=== PATIENT | female | born 1970 | race Caucasian/White ===

== ENCOUNTER 2016-08-30 02:38 | Emergency (ER) | payer BC ==
--- NOTE | 2016-08-30 03:44 | EDM.PDOC ---
ED HPI GENERAL MEDICAL PROBLEM - General Chief Complaint: Respiratory Problem Stated Complaint: TROUBLE BREATHING Time Seen by Provider: 08/30/16 02:45 Source of Information: Reports: Patient, Family (), RN Notes Reviewed History Limitations: Reports: No Limitations - History of Present Illness INITIAL COMMENTS - FREE TEXT/NARRATIVE: The patient states that she woke around 02:30 with the sensation that she couldn 't breathe. Her neck felt tight. The patient was not coughing. She denies having had chest pain or palpitations. No tingling or numbness to her face or hands, however, she did feel shaky. Her symptoms improved on the way to the ED. Once of the ED, it was noted that the patient's oxygen saturation was 100% on room air. No recent illnesses. No prior similar symptoms. The patient's PCP is Dr. Kahn. 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: Endocrine/Metabolic History: Reports: Hypothyroidism - Past Surgical History HEENT Surgical History: Reports: Oral Surgery ([place] teeth extraction) GI Surgical History: Reports: Cholecystectomy Female Surgical History: Reports: Endometrial Ablation Social & Family History - Family History Family Medical History: Noncontributory - Tobacco Use Smoking Status *Q: Never Smoker - Caffeine Use Caffeine Use: Reports: Coffee, Soda - Alcohol Use Alcohol Use History: Yes Alcohol Use Frequency: Socially - Recreational Drug Use Recreational Drug Use: No - Living Situation & Occupation Living situation: Reports: , with Spouse, with Family (3 kids) 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[employer]) ED ROS GENERAL - Review of Systems Review Of Systems: See Below Constitutional: Reports: No Symptoms HEENT: Reports: No Symptoms Respiratory: Reports: No Symptoms Cardiovascular: Reports: No Symptoms Endocrine: Reports: No Symptoms GI/Abdominal: Reports: No Symptoms : Reports: No Symptoms Musculoskeletal: Reports: Neck Pain (x 2 months) Skin: Reports: No Symptoms Neurological: Reports: No Symptoms Psychiatric: Reports: No Symptoms Hematologic/Lymphatic: Reports: No Symptoms Immunologic: Reports: No Symptoms ED EXAM, GENERAL - Physical Exam Exam: See Below Exam Limited By: No Limitations General Appearance: Alert, WD/WN, No Apparent Distress Eye Exam: Bilateral Eye: Normal Inspection Ears: Normal External Exam, Hearing Grossly Normal Ear Exam: Bilateral Ear: Auricle Normal Nose: Normal Inspection, No Blood Throat/Mouth: Normal Inspection, Normal Lips, Normal Voice, No Airway Compromise Head: Atraumatic, Normocephalic Neck: Normal Inspection, Full Range of Motion Respiratory/Chest: No Respiratory Distress, Lungs Clear, Normal Breath Sounds, No Accessory Muscle Use Cardiovascular: Normal Peripheral Pulses, Regular Rate, Rhythm, No Gallop, No JVD, No Murmur, No Rub Peripheral Pulses: 4+: Radial (L), Radial (R) GI/Abdominal: Normal Bowel Sounds, Soft, Non-Tender, No Organomegaly, No Distention, No Abnormal Bruit, No Mass (Female) Exam: Deferred Rectal (Female) Exam: Deferred Back Exam: Normal Inspection, Full Range of Motion, NT Extremities: Normal Inspection, Normal Range of Motion, No Pedal Edema, Normal Capillary Refill Neurological: Alert, Oriented, Normal Cognition, No Motor/Sensory Deficits Psychiatric: Normal Affect Skin Exam: Warm, Dry, Intact, Normal Color, No Rash Lymphatic: No Adenopathy EKG INTERPRETATION EKG Date: 08/30/16 Time: 03:16 Rhythm: NSR Rate (beats/min): 68 [place]: normal P-wave: present QRS: normal ST-T: normal QT: normal Comparison: NA - no prior EKG Course - Vital Signs Last Recorded V/S: Last Vital Signs Temp 36.5 C 08/30/16 02:40 Pulse 91 08/30/16 02:40 Resp 16 08/30/16 02:40 BP 178/84 H 08/30/16 02:40 Pulse Ox 100 08/30/16 02:40 Orthostatic Blood Pressure [ 171/94 Standing] Orthostatic Blood Pressure [ 166/85 Supine] - Orders/Labs/Meds Orders: Active Orders 24 hr Category Date Time Status EKG Documentation Completion [RC] STAT Care 08/30/16 03:01 Active Orthostatic Vital Signs [RC] STAT Care 08/30/16 03:01 Active Chest 2V [CR] Stat Exams 08/30/16 03:01 Taken Labs: Laboratory Tests 08/30/16 08/30/1617 Range/Units 03:15 03:15 03:15 WBC 7.73 (3.98-10.04) K/mm3 RBC 4.68 (3.98-5.22) M/mm3 Hgb 13.6 (11.2-15.7) gm/L Hct 42.0 (34.1-44.9) % MCV 89.7 (79.4-94.8) fl MCH 29.1 (25.6-32.2) pg MCHC 32.4 (32.2-35.5) g/dl RDW Std Deviation 41.3 (36.4-46.3) fL Plt Count 243 (182-369) K/mm3 MPV 10.4 (9.4-12.3) fl Neutrophils % (Manual) 51 (40-60) % Band Neutrophils % 0 (0-10) % Lymphocytes % (Manual) 47 H (20-40) % Atypical Lymphs % 0 % Immat Monocytes % (Man) 0 Monocytes % (Manual) 1 L (2-10) % Eosinophils % (Manual) 1 (0.7-5.8) % Basophils % (Manual) 0 L (0.1-1.2) Metamyelocytes % 0 Myelocytes % 0 Promyelocytes % 0 Blast Cells % 0 Plasma Cell % (Manual) 0 Nucleated RBCs 0.0 % Platelet Estimate Adequate RBC Morph Comment Normal PT 9.5 (8.0-13.0) SECONDS INR 0.88 APTT 26 (22-36) SECONDS D-Dimer, Quantitative 0.38 (0.19-0.59) mg/L Puncture Site ABG pH (7.35-7.45) ABG pCO2 (35.0-45.0) mmHg ABG pO2 (80.0-100.0) mmHg ABG HCO3 (22.0-26.0) meq/L ABG O2 Saturation (96.0-97.0) % ABG Base Excess (-2-2.0) Adolfo Test A-a Gradient mmHg O2 Delivery Device FiO2 (21.00-100.00) % Sodium 142 (136-145) mEq/L Potassium 3.5 (3.5-5.1) mEq/L Chloride 107 (98-107) mEq/L Carbon Dioxide 27 (21-32) mEq/L Anion Gap 11.5 (5-15) BUN 20 H (7-18) mg/dL Creatinine 0.8 (0.55-1.02) mg/dL Est Cr Clr Drug Dosing 85.45 mL/min Estimated GFR (MDRD) > 60 (>60) mL/min BUN/Creatinine Ratio 25.0 H (14-18) Glucose 98 (74-106) mg/dL Calcium 8.5 (8.5-10.1) mg/dL Magnesium 1.7 L (1.8-2.4) mg/dl Total Bilirubin 0.3 (0.2-1.0) mg/dL AST 18 (15-37) U/L ALT 31 (14-59) U/L Alkaline Phosphatase 82 (46-116) U/L Troponin I < 0.017 (0.00-0.056) ng/mL B-Natriuretic Peptide (0-100) pg/mL Total Protein 6.8 (6.4-8.2) g/dl Albumin 3.4 (3.4-5.0) g/dl Globulin 3.4 gm/dL Albumin/Globulin Ratio 1.0 (1-2) TSH 3rd Generation 5.541 H (0.358-3.74) uIU/mL Urine Color (Yellow) Urine Appearance (Clear) Urine pH (5.0-8.0) Ur Specific [place] (1.005-1.030) Urine Protein (Negative) Urine Glucose (UA) (Negative) Urine Ketones (Negative) Urine Occult Blood (Negative) Urine Nitrite (Negative) Urine Bilirubin (Negative) Urine Urobilinogen (0.2-1.0) Ur Leukocyte Esterase (Negative) Urine RBC (0-5) /hpf Urine WBC (0-5) /hpf Ur Epithelial Cells Ur Squamous Epith Cells (0-5) /hpf Urine Bacteria (FEW) /hpf Urine Mucus (FEW) /hpf Urine HCG, Qual (NEGATIVE) 08/30/16 08/30/16 08/30/16 Range/Units 03:15 03:25 04:00 WBC (3.98-10.04) K/mm3 RBC (3.98-5.22) M/mm3 Hgb (11.2-15.7) gm/L Hct (34.1-44.9) % MCV (79.4-94.8) fl MCH (25.6-32.2) pg MCHC (32.2-35.5) g/dl RDW Std Deviation (36.4-46.3) fL Plt Count (182-369) K/mm3 MPV (9.4-12.3) fl Neutrophils % (Manual) (40-60) % Band Neutrophils % (0-10) % Lymphocytes % (Manual) (20-40) % Atypical Lymphs % % Immat Monocytes % (Man) Monocytes % (Manual) (2-10) % Eosinophils % (Manual) (0.7-5.8) % Basophils % (Manual) (0.1-1.2) Metamyelocytes % Myelocytes % Promyelocytes % Blast Cells % Plasma Cell % (Manual) Nucleated RBCs % Platelet Estimate RBC Morph Comment PT (8.0-13.0) SECONDS INR APTT (22-36) SECONDS D-Dimer, Quantitative (0.19-0.59) mg/L Puncture Site Lt radial ABG pH 7.39 (7.35-7.45) ABG pCO2 38.9 (35.0-45.0) mmHg ABG pO2 68.0 L (80.0-100.0) mmHg ABG HCO3 23.1 (22.0-26.0) meq/L ABG O2 Saturation 95.2 L (96.0-97.0) % ABG Base Excess -1.0 (-2-2.0) Adolfo Test Positive A-a Gradient 18 mmHg O2 Delivery Device Room air FiO2 21.00 (21.00-100.00) % Sodium (136-145) mEq/L Potassium (3.5-5.1) mEq/L Chloride (98-107) mEq/L Carbon Dioxide (21-32) mEq/L Anion Gap (5-15) BUN (7-18) mg/dL Creatinine (0.55-1.02) mg/dL Est Cr Clr Drug Dosing mL/min Estimated GFR (MDRD) (>60) mL/min BUN/Creatinine Ratio (14-18) Glucose (74-106) mg/dL Calcium (8.5-10.1) mg/dL Magnesium (1.8-2.4) mg/dl Total Bilirubin (0.2-1.0) mg/dL AST (15-37) U/L ALT (14-59) U/L Alkaline Phosphatase (46-116) U/L Troponin I (0.00-0.056) ng/mL B-Natriuretic Peptide 75 (0-100) pg/mL Total Protein (6.4-8.2) g/dl Albumin (3.4-5.0) g/dl Globulin gm/dL Albumin/Globulin Ratio (1-2) TSH 3rd Generation (0.358-3.74) uIU/mL Urine Color (Yellow) Urine Appearance (Clear) Urine pH (5.0-8.0) Ur Specific [place] (1.005-1.030) Urine Protein (Negative) Urine Glucose (UA) (Negative) Urine Ketones (Negative) Urine Occult Blood (Negative) Urine Nitrite (Negative) Urine Bilirubin (Negative) Urine Urobilinogen (0.2-1.0) Ur Leukocyte Esterase (Negative) Urine RBC (0-5) /hpf Urine WBC (0-5) /hpf Ur Epithelial Cells Ur Squamous Epith Cells (0-5) /hpf Urine Bacteria (FEW) /hpf Urine Mucus (FEW) /hpf Urine HCG, Qual Negative (NEGATIVE) 08/30/16 Range/Units 04:00 WBC (3.98-10.04) K/mm3 RBC (3.98-5.22) M/mm3 Hgb (11.2-15.7) gm/L Hct (34.1-44.9) % MCV (79.4-94.8) fl MCH (25.6-32.2) pg MCHC (32.2-35.5) g/dl RDW Std Deviation (36.4-46.3) fL Plt Count (182-369) K/mm3 MPV (9.4-12.3) fl Neutrophils % (Manual) (40-60) % Band Neutrophils % (0-10) % Lymphocytes % (Manual) (20-40) % Atypical Lymphs % % Immat Monocytes % (Man) Monocytes % (Manual) (2-10) % Eosinophils % (Manual) (0.7-5.8) % Basophils % (Manual) (0.1-1.2) Metamyelocytes % Myelocytes % Promyelocytes % Blast Cells % Plasma Cell % (Manual) Nucleated RBCs % Platelet Estimate RBC Morph Comment PT (8.0-13.0) SECONDS INR APTT (22-36) SECONDS D-Dimer, Quantitative (0.19-0.59) mg/L Puncture Site ABG pH (7.35-7.45) ABG pCO2 (35.0-45.0) mmHg ABG pO2 (80.0-100.0) mmHg ABG HCO3 (22.0-26.0) meq/L ABG O2 Saturation (96.0-97.0) % ABG Base Excess (-2-2.0) Adolfo Test A-a Gradient mmHg O2 Delivery Device FiO2 (21.00-100.00) % Sodium (136-145) mEq/L Potassium (3.5-5.1) mEq/L Chloride (98-107) mEq/L Carbon Dioxide (21-32) mEq/L Anion Gap (5-15) BUN (7-18) mg/dL Creatinine (0.55-1.02) mg/dL Est Cr Clr Drug Dosing mL/min Estimated GFR (MDRD) (>60) mL/min BUN/Creatinine Ratio (14-18) Glucose (74-106) mg/dL Calcium (8.5-10.1) mg/dL Magnesium (1.8-2.4) mg/dl Total Bilirubin (0.2-1.0) mg/dL AST (15-37) U/L ALT (14-59) U/L Alkaline Phosphatase (46-116) U/L Troponin I (0.00-0.056) ng/mL B-Natriuretic Peptide (0-100) pg/mL Total Protein (6.4-8.2) g/dl Albumin (3.4-5.0) g/dl Globulin gm/dL Albumin/Globulin Ratio (1-2) TSH 3rd Generation (0.358-3.74) uIU/mL Urine Color Yellow (Yellow) Urine Appearance Clear (Clear) Urine pH 5.5 (5.0-8.0) Ur Specific [place] > or = 1.030 (1.005-1.030) Urine Protein Trace H (Negative) Urine Glucose (UA) Negative (Negative) Urine Ketones Negative (Negative) Urine Occult Blood Negative (Negative) Urine Nitrite Negative (Negative) Urine Bilirubin Negative (Negative) Urine Urobilinogen 0.2 (0.2-1.0) Ur Leukocyte Esterase Trace H (Negative) Urine RBC Not seen (0-5) /hpf Urine WBC 0-5 (0-5) /hpf Ur Epithelial Cells Not Reportable Ur Squamous Epith Cells 0-5 (0-5) /hpf Urine Bacteria Not seen (FEW) /hpf Urine Mucus Few (FEW) /hpf Urine HCG, Qual (NEGATIVE) - Radiology Interpretation Free Text/Narrative:: Two-view chest radiograph appears to be grossly normal. Cardiac silhouette is within normal limits. No pulmonary vascular congestion. No pleural effusions. No focal infiltrate. No pneumothorax. Formal read per the Radiologist pending. - Re-Assessments/Exams Free Text/Narrative Re-Assessment/Exam: 08/30/16 03:30 The patient is not orthostatic. 08/30/16 05:13 Test results discussed with the patient and her . Today's workup is unremarkable, however, when the patient first arrived, it was noted that her oxygen saturation was 100% on room air, consistent with hyperventilation. The symptoms that the patient initially had were also consistent with hyperventilation, and have since resolved. Today's workup rules out other etiology for hyperventilation, such as metabolic acidosis, hypocalcemia, hypoglycemia, hyperthyroidism, liver failure, severe anemia, sepsis, acute coronary event, pneumothorax, pneumonia, dysrhythmia, PE, and CHF. The most likely explanation, then, is anxiety. Departure - Departure Time of Disposition: 05:16 Disposition: Home, Self-Care 01 Condition: good Clinical Impression: Hyperventilation syndrome - Discharge Information Referrals: Augustine Cr MD [Primary Care Provider] - Forms: ED Department Discharge Additional Instructions: You were seen in the emergency room because of feeling that he couldn't breathe , with tightness in her neck. When you arrived in the ER, your oxygen saturation was 100% on room air, consistent with hyperventilation. Hyperventilation can be caused by numerous medical problems, such as metabolic acidosis, hypocalcemia, hypoglycemia, hyperthyroidism, liver failure, severe anemia, sepsis, acute coronary event, pneumothorax, pneumonia, dysrhythmia, PE, and CHF. These have been ruled out. The MOST LIKELY explanation for your hyperventilation is anxiety. While unpleasant, hyperventilation is not harmful to you. Since this is the first time that this has happened, no treatment is needed, however, if this becomes recurrent, please talk to your PCP, Dr. Kahn, about medical treatment. If any other problems, please do not hesitate to return to the ER. - My Orders Last 24 Hours: My Active Orders 08/30/16 03:01 EKG Documentation Completion [RC] STAT Orthostatic Vital Signs [RC] STAT Chest 2V [CR] Stat - Assessment/Plan Last 24 Hours: My Active Orders 08/30/16 03:01 EKG Documentation Completion [RC] STAT Orthostatic Vital Signs [RC] STAT Chest 2V [CR] Stat
[2016-08-30 05:25] VITALS: BP 137/71
--- NOTE | 2016-08-30 07:37 | CR ---
Chest: Two views of the chest were obtained. Comparison: No previous chest x-ray. Heart size and mediastinum are normal. Lungs are clear. Bony structures are unremarkable. Impression: 1. Nothing acute is identified on two-view chest x-ray. Diagnostic code #1
== END 2016-08-30 05:23 | disposition home or self-care (01) ==
LOC: JD.ED 02:38
DX: F45.8 Other somatoform disorders (principal); E03.9 Hypothyroidism, unspecified; Z88.1 Allergy status to other antibiotic agents; Z90.49 Acquired absence of other specified parts of digestive tract; Z98.818 Other dental procedure status; Z98.890 Other specified postprocedural states
CPT/HCPCS: 36415; 36600; 71020; 71020-26; 80053; 81001; 81025; 82803; 83735; 83880; 84443; 84484; 85025; 85379; 85610; 85730; 93005; 99282; 99285-25

== ENCOUNTER 2017-10-11 12:41 | Emergency (ER) | payer BC ==
[2017-10-11] MEDS ORDERED: Sodium Chloride 0.9% 1,000 ML IV SCH (13:00)
--- NOTE | 2017-10-11 13:03 | EDM.PDOC ---
ED HPI GENERAL MEDICAL PROBLEM - General Chief Complaint: Chest Pain Stated Complaint: CHEST DISCOMFORT/R ARM DISCOMFORT Time Seen by Provider: 10/11/17 12:57 Source of Information: Reports: Patient History Limitations: Reports: No Limitations - History of Present Illness INITIAL COMMENTS - FREE TEXT/NARRATIVE: 46-year-old female presents to the ED with retrosternal chest pain that radiated up into her throat primarily yesterday. She states it started shortly after breakfast yesterday morning about 9:00 and was quite bad by 11:00. She actually went home from work. She did go back to work to mid afternoon when it in the stomach. Burping and belching seemed to help a little bit with the discomfort. She states it was quite burning and tender. There was some odynophagia noted yesterday. So today. She took a good deal of Tums and Rolaids just today as well as picked up his prescription of omeprazole which she has taken 2 tablets today her pain is down to a 1. She still aware of it in the pit of her stomach with pressure discomfort and the pain seemed to radiate into her right shoulder and arm for a period of time. Again it was worse yesterday. She exited broke out in a sweat yesterday. She also remains mildly nauseated with pain referred rate through to her back to her intrascapular area. Deep breathing makes the pain minimally worse. Bowels are working normally. She's had no previous cardiac problems. She reports she is a never smoker. She does give a history of suspect pulmonary embolism although the details of this are a little off and I cannot confirm whether she actually had a PE she's never been told she has a hiatal hernia problem in the past.. Apparently she did not have a DVT. Onset: Gradual Onset Date: 10/10/17 Onset Time: 09:00 Duration: Hour(s):, Improving Location: Reports: Chest, Abdomen (Central chest up into her throat and neck. Bilateral jaw discomfort of the stomach pressure discomfort.), Back, Radiates to (Intrascapular area). Denies: Pelvis (Radiates from the stomach right through to her mid back between the shoulder blades.), Upper Extremity, Left, Upper Extremity, Right, Lower Extremity, Left Quality: Reports: Ache, Burning, Pressure Severity: Mild (Currently pain is down to 1 out of 10. Yesterday was high as 8 out of 10 associated with diaphoresis and marked nausea. Nausea is mild at this time) Improves with: Reports: None Worsens with: Reports: Other (Had a rough night last night is no position was carpal. Shallowly on her left side to get a little) Context: Denies: Activity ( relief of the discomfort.), Exercise, Lifting, Sick Contact, Trauma, Other Associated Symptoms: Reports: Loss of Appetite, Nausea/Vomiting (Nausea with no vomiting although she thought for quite a while yesterday she was going to vomit.). Denies: No Other Symptoms, Confusion, Chest Pain, Cough, cough w sputum, Diaphoresis, Fever/Chills, Headaches, Malaise, Rash, Seizure, Shortness of Breath, Syncope, Weakness Treatments CONTACT CLERK: Reports: Other (see below) (She has eaten a lot of Tums and Rolaids and omeprazole starting yesterday.) Chest Pain Score (Numeric/FACES): 4 - Related Data Allergies Allergy/AdvReac Type Severity Reaction Status Date / Time azithromycin Allergy Hives Verified 10/11/17 12:51 [From Zithromax Z-Iglesia] Home Meds: Home Meds Dicyclomine [Bentyl] 20 mg PO Q6H PRN #10 tablet 10/11/17 [Rx] Levothyroxine 125 mcg PO DAILY 10/11/17 [History] Past Medical History Respiratory History: Reports: PE (By history she reports a past history of pulmonary embolism. Apparently her legs were negative for any clots at that time. This did not occur with any trauma or surgery.) Gastrointestinal History: Reports: [employer] History: Reports: Musculoskeletal History: Reports: Back Pain, Chronic, Neck Pain, Chronic Endocrine/Metabolic History: Reports: Hypothyroidism - Past Surgical History HEENT Surgical History: Reports: Oral Surgery GI Surgical History: Reports: Cholecystectomy Female Surgical History: Reports: Endometrial Ablation Social & Family History - Family History Family Medical History: Noncontributory - Tobacco Use Smoking Status *Q: Never Smoker - Caffeine Use Caffeine Use: Reports: Coffee - Recreational Drug Use Recreational Drug Use: No - Living Situation & Occupation Living situation: Reports: , with Spouse, with Family (3 kids) 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 Denies: Fever, Chills, Weakness, Weight Loss ( Slept very poorly last night due to epigastric pain. No position is comfortable. ) HEENT: Reports: Glasses Respiratory: Reports: Other (Deep breathing makes the pain in the epigastrium mildly worse.). Denies: Shortness of Breath, Wheezing, Pleuritic Chest Pain Cardiovascular: Reports: Chest Pain, Dyspnea on Exertion (See history of present illness). Denies: Blood Pressure Problem, Claudication, Edema, Lightheadedness, Orthopnea Endocrine: Reports: Fatigue GI/Abdominal: Reports: Abdominal Pain, Decreased Appetite (Epigastrium rate up into her neck and throat and retrosternal chest.). Denies: Difficulty Swallowing, Distension, Flatus, Hematemesis, Hematochezia, Melena, Mucous in Stool, Nausea, Vomiting, Other : Reports: No Symptoms Musculoskeletal: Reports: Neck Pain (Chronic cervical neck pain), Back Pain ( Committed low back pain.) Skin: Reports: No Symptoms Neurological: Reports: No Symptoms Psychiatric: Reports: No Symptoms Hematologic/Lymphatic: Reports: No Symptoms ED EXAM, GENERAL - Physical Exam Exam: See Below Exam Limited By: No Limitations General Appearance: Alert, WD/WN, Anxious (Mildly anxious.) Eye Exam: Bilateral Eye: Normal Inspection (No jaundice) Throat/Mouth: Normal Inspection, Normal Lips, Normal Teeth, Normal Gums, Normal Oropharynx Head: Normocephalic Neck: Normal Inspection, Supple, Non-Tender, Full Range of Motion. No: Carotid Bruit, Lymphadenopathy (L), Lymphadenopathy (R), Thyromegaly Respiratory/Chest: No Respiratory Distress, Lungs Clear, Normal Breath Sounds, No Accessory Muscle Use, Other (Mild chest wall tenderness on palpation of ribs 4 and 5 bilaterally. It refers the pain to the epigastrium.) Cardiovascular: Normal Peripheral Pulses, Regular Rate, Rhythm, No Edema, No Gallop, No Murmur Peripheral Pulses: 3+: Posterior Tibial (L), Posterior Tibial (R), Dorsalis Pedis (L), Dorsalis Pedis (R) GI/Abdominal: Normal Bowel Sounds, Soft, No Organomegaly, Tender, Other (She's had previous lap cholecystectomy.) Back Exam: Normal Inspection, Full Range of Motion. No: CVA Tenderness (L), CVA Tenderness (R) Extremities: Normal Inspection, Normal Range of Motion, Non-Tender, No Pedal Edema Neurological: Alert, Oriented, CN II-XII Intact, Normal Cognition, Normal Gait Psychiatric: Normal Mood, Anxious Skin Exam: Warm, Dry, Intact, Normal Color EKG INTERPRETATION EKG Date: 10/11/17 Time: 12:50 Rhythm: Other Rate (Beats/Min): 57 [place]: Normal P-Wave: Present QRS: Other (Patient has early R-wave transition. Consider right ventricular hypertrophy/septal hypertrophy pattern. She has criteria for left ventricular hypertrophy pattern with tall R-wave in lead 1.) ST-T: Other (There is a Q-wave in aVL less than 25% of the QRS complex. There is similarly Q-wave in lead 1 again less than 25% of the QRS complex. At this time considered insignificant although one could consider possible old circumflex coronary infarction.) QT: Prolonged (Moderately prolonged) Course - Vital Signs Last Recorded V/S: Last Vital Signs Temp 35.8 C 10/11/17 14:33 Pulse 52 L 10/11/17 14:33 Resp 16 10/11/17 14:33 BP 143/71 H 10/11/17 14:33 Pulse Ox 96 10/11/17 14:33 - Orders/Labs/Meds Orders: Active Orders 24 hr Category Date Time Status EKG 12 Lead [EKG Documentation Completion] [RC] STAT Care 10/11/17 12:47 Active EKG Documentation Completion [RC] STAT Care 10/11/17 13:01 Active Chest 1V Frontal [CR] Stat Exams 10/11/17 13:01 Taken Sodium Chloride 0.9% [Normal Saline] 1,000 ml Med 10/11/17 13:00 Active IV ASDIRECTED Medication Orders Sodium Chloride (Normal Saline) 1,000 mls @ 125 mls/hr IV ASDIRECTED SAVANAH Last Admin: 10/11/17 13:17 Dose: 125 mls/hr Labs: Laboratory Tests 10/11/17 10/11/17 10/11/17 Range/Units 13:00 13:00 13:00 WBC 5.92 (3.98-10.04) K/mm3 RBC 4.74 (3.98-5.22) M/mm3 Hgb 13.8 (11.2-15.7) gm/L Hct 42.9 (34.1-44.9) % MCV 90.5 (79.4-94.8) fl MCH 29.1 (25.6-32.2) pg MCHC 32.2 (32.2-35.5) g/dl RDW Std Deviation 42.7 (36.4-46.3) fL Plt Count 243 (182-369) K/mm3 MPV 10.3 (9.4-12.3) fl Neutrophils % (Manual) 45 (40-60) % Band Neutrophils % 1 (0-10) % Lymphocytes % (Manual) 52 H (20-40) % Atypical Lymphs % 0 % Monocytes % (Manual) 2 (2-10) % Eosinophils % (Manual) 0 L (0.7-5.8) % Basophils % (Manual) 0 L (0.1-1.2) Platelet Estimate Adequate RBC Morph Comment Normal PT 10.2 (9.5-12.1) SECONDS INR 0.93 D-Dimer, Quantitative (0.19-0.50) mg/L Sodium 139 (136-145) mEq/L Potassium 3.4 L (3.5-5.1) mEq/L Chloride 102 (98-107) mEq/L Carbon Dioxide 29 (21-32) mEq/L Anion Gap 11.4 (5-15) BUN 19 H (7-18) mg/dL Creatinine 1.0 (0.55-1.02) mg/dL Est Cr Clr Drug Dosing 67.63 mL/min Estimated GFR (MDRD) 59 (>60) mL/min BUN/Creatinine Ratio 19.0 H (14-18) Glucose 100 (74-106) mg/dL Calcium 9.1 (8.5-10.1) mg/dL Magnesium 1.8 (1.8-2.4) mg/dl Total Bilirubin 0.4 (0.2-1.0) mg/dL AST 22 (15-37) U/L ALT 36 (14-59) U/L Alkaline Phosphatase 80 (46-116) U/L CK-MB (CK-2) 0.9 (0-3.6) ng/ml Troponin I < 0.017 (0.00-0.056) ng/mL C-Reactive Protein 0.4 (<1.0) mg/dL NT-Pro-B Natriuret Pep (0-125) pg/mL Total Protein 7.7 (6.4-8.2) g/dl Albumin 3.9 (3.4-5.0) g/dl Globulin 3.8 gm/dL Albumin/Globulin Ratio 1.0 (1-2) Lipase (73-393) U/L 10/11/17 10/11/17 10/11/17 Range/Units 13:00 13:00 13:00 WBC (3.98-10.04) K/mm3 RBC (3.98-5.22) M/mm3 Hgb (11.2-15.7) gm/L Hct (34.1-44.9) % MCV (79.4-94.8) fl MCH (25.6-32.2) pg MCHC (32.2-35.5) g/dl RDW Std Deviation (36.4-46.3) fL Plt Count (182-369) K/mm3 MPV (9.4-12.3) fl Neutrophils % (Manual) (40-60) % Band Neutrophils % (0-10) % Lymphocytes % (Manual) (20-40) % Atypical Lymphs % % Monocytes % (Manual) (2-10) % Eosinophils % (Manual) (0.7-5.8) % Basophils % (Manual) (0.1-1.2) Platelet Estimate RBC Morph Comment PT (9.5-12.1) SECONDS INR D-Dimer, Quantitative 0.46 (0.19-0.50) mg/L Sodium (136-145) mEq/L Potassium (3.5-5.1) mEq/L Chloride (98-107) mEq/L Carbon Dioxide (21-32) mEq/L Anion Gap (5-15) BUN (7-18) mg/dL Creatinine (0.55-1.02) mg/dL Est Cr Clr Drug Dosing mL/min Estimated GFR (MDRD) (>60) mL/min BUN/Creatinine Ratio (14-18) Glucose (74-106) mg/dL Calcium (8.5-10.1) mg/dL Magnesium (1.8-2.4) mg/dl Total Bilirubin (0.2-1.0) mg/dL AST (15-37) U/L ALT (14-59) U/L Alkaline Phosphatase (46-116) U/L CK-MB (CK-2) (0-3.6) ng/ml Troponin I (0.00-0.056) ng/mL C-Reactive Protein (<1.0) mg/dL NT-Pro-B Natriuret Pep 179 H (0-125) pg/mL Total Protein (6.4-8.2) g/dl Albumin (3.4-5.0) g/dl Globulin gm/dL Albumin/Globulin Ratio (1-2) Lipase 233 (73-393) U/L Meds: Medications Generic Name Dose Route Start Last Admin Trade Name Freq PRN Reason Stop Dose Admin Sodium Chloride 1,000 mls @ 125 mls/hr 10/11/17 13:00 10/11/17 13:17 Normal Saline IV 125 mls/hr ASDIRECTED SAVANAH Administration Discontinued Medications Generic Name Dose Route Start Last Admin Trade Name Freq PRN Reason Stop Dose Admin Al Hydroxide/Mg Hydroxide 30 0 ml 10/11/17 13:21 10/11/17 13:35 ml/ Lidocaine HCl 15 ml PO 10/11/17 13:22 45 ml ONETIME ONE Administration Hyoscyamine 0.125 mg 10/11/17 13:20 10/11/17 13:31 Hyomax-Sl SL 10/11/17 13:21 0.125 mg ONETIME ONE Administration Metoclopramide HCl 7.5 mg 10/11/17 13:20 10/11/17 13:32 Reglan IVPUSH 10/11/17 13:21 7.5 mg ONETIME ONE Administration Ondansetron HCl 4 mg 10/11/17 13:20 10/11/17 13:35 Zofran IVPUSH 10/11/17 13:21 Not Given ONETIME ONE - Radiology Interpretation Free Text/Narrative:: 46-year-old female presents the ED with central chest pain rating up into her neck and throat. Starts in the pit of her stomach however and radiates through to her mid back suggestive of hiatal hernia. This pain started yesterday about 9 :00 in the morning and is persisted. It is much better today than it was yesterday. She has some pain into her right shoulder as well. Burping and belching seemed to relieve some of the discomfort. She is not wanting to eat much as she remains mildly nauseated. She has no known history of coronary disease. There is some suggestion that she may have had a PE in the past. No recent travel history or surgery. Medical examination is normal other than ECG suggesting criteria for left ventricular hypertrophy likely due to uncontrolled blood pressure. There is Q waves in 1 and aVL which are less than 25% of the QRS complex suggesting possible old lateral wall myocardial infarction. QT is moderately prolonged at 490. I suspect this is GI in origin. I will not give her aspirin at this time. She'll be given Levsin 0.125 mg sublingual GI cocktail containing Maalox and viscous lidocaine and Reglan 7.5 mg IV for nausea relief. One view chest x-ray to be obtained with routine labs to include cardiac markers and lipase. - Re-Assessments/Exams Free Text/Narrative Re-Assessment/Exam: 10/11/17 13:50 1 view portable chest x-ray suggests borderline changes for cardiomegaly. Visualized portion of the lungs are clear. Costophrenic angles are normal no pleural effusions. There is no pneumothorax or lung infiltrate. 10/11/17 14:22 Labs reveal a normal white count at 5.92. Differential is normal to with 52% neutrophils and no bands. Hemoglobin is 13.8 with hematocrit of 42.9. Platelet count is normal at 243,000. MCV is normal at 90.5. PT is 10.2 with an INR of 0.93. D-dimer is normal at 0.46. Serum sodium is 139. 2. Potassium slightly low at 3.4. Chloride is 102 with a bicarbonate of 29. Anion gap is normal 11.4. B1 is 19 with a creatinine of 1.0. GFR is 59. Glucose is 100. Calcium is normal at 9.1. Magnesium is 1.8 low normal. Liver function is normal. Troponin I is less than 0.017. CK-MB fraction is 0.9. C-reactive protein is 0.4. BNP is 179. Serum lipase normal at 233. On reassessment patient feels she is doing better with very little pressure discomfort in her epigastrium at this time. I'm going to give her a prescription for Bentyl 20 mg tablet that she can use on the every 6 hours when necessary basis for similar type pain. Advised about not eating for 3 hours before going to bed. Continue omeprazole 20 mg once daily at bedtime. Continue efforts to lose weight. Problem or wakes up in the night with brash water in her mouth or throat she is to consider surgery as an option I fundoplication. Departure - Departure Time of Disposition: 14:30 Disposition: Home, Self-Care 01 Condition: Fair Clinical Impression: Non-cardiac chest pain, Hiatal hernia with gastroesophageal reflux Prescriptions: Dicyclomine [Bentyl] 20 mg PO Q6H PRN #10 tablet PRN Reason: Abdominal cramps/diarrhea Referrals: Augustine Cr MD [Primary Care Provider] - Forms: ED Department Discharge Additional Instructions: Evaluation in the emergency him today in regards to severe epigastric pain rating up into the neck and throat starting yesterday morning. Associated burning and spastic palpitation-like pain. Pain rated rate through to the mid back as well. The signs and symptoms are characteristic of hiatal hernia type pain. Pain is better today although you appreciated some pain radiate your right upper extremity as well. Complete cardiac workup revealed no signs of heart related illness. Cardiac markers are 0. Also markers for blood clot in the lung are negative. Chest x-ray is within normal limits. Lab work showed no positive the pancreas or liver either. You're treated with a GI cocktail which is Maalox containing some viscous lidocaine of 70.125 milligrams of the tongue to try and relax the bowel or the juncture of the food pipe and stomach. This seemed to give you some degree of pain relief. Strongly suspect that you have a hiatal hernia which makes the lower esophageal valve or sphincter not work properly as it cannot close. This allows free reflux of acid contents and stomach content up into the lower 4. Food pipe causing burning and ulceration. Treatment is to continue omeprazole 20 mg every night at bedtime for at least a month if not longer. May use Bentyl 20 mg tablet for pain relief for the next few days if needed for epigastric pressure discomfort. I would suggest lots of fluids today and try to keep gravity on your side by either sitting or standing. I heavy meal such as oatmeal may also help the stomach return back into the abdominal cavity where prolongs. If symptoms persist or you have recurrence of similar type symptoms consider follow-up with your primary care physician to arrange for upper GI endoscopy to confirm hiatal hernia and then consideration of possible surgery I called the fundoplication to prevent chronic reflux pain from hiatal hernia. - My Orders Last 24 Hours: My Active Orders 10/11/17 12:47 EKG 12 Lead [EKG Documentation Completion] [RC] STAT 10/11/17 13:00 Sodium Chloride 0.9% [Normal Saline] 1,000 ml IV ASDIRECTED 10/11/17 13:01 EKG Documentation Completion [RC] STAT Chest 1V Frontal [CR] Stat - Assessment/Plan Last 24 Hours: My Active Orders 10/11/17 12:47 EKG 12 Lead [EKG Documentation Completion] [RC] STAT 10/11/17 13:00 Sodium Chloride 0.9% [Normal Saline] 1,000 ml IV ASDIRECTED 10/11/17 13:01 EKG Documentation Completion [RC] STAT Chest 1V Frontal [CR] Stat
[2017-10-11] MEDS ORDERED: Ondansetron 4 MG/2 ML SDV IVPUSH ONE (13:20)
[2017-10-11] MEDS ORDERED: Metoclopramide 10 MG/2 ML SDV IVPUSH ONE (13:20)
[2017-10-11] MEDS ORDERED: Hyoscyamine 0.125 MG Tab.SL SL ONE (13:20)
[2017-10-11] MEDS ORDERED: Alum Hydrox/Mag Hydrox/Simeth 30 ML, Lidocaine 2% 15 ML PO ONE ×2 (13:21)
[2017-10-11 14:35] VITALS: BP 143/71
--- NOTE | 2017-10-13 11:15 | CR ---
Chest: Portable view of the chest was obtained. Comparison: Chest x-ray of 08/30/16. Heart size and mediastinum are normal. Lungs are clear. Bony structures are grossly intact. Prior cholecystectomy is noted. Impression: 1. Incidental findings. Nothing acute is seen on portable chest x-ray. Diagnostic code #2
== END 2017-10-11 14:43 | disposition home or self-care (01) ==
LOC: JD.ED 12:41
DX: R07.89 Other chest pain (principal); K44.9 Diaphragmatic hernia without obstruction or gangrene; K21.9 Gastro-esophageal reflux disease without esophagitis; E03.9 Hypothyroidism, unspecified; Z79.899 Other long term (current) drug therapy
CPT/HCPCS: 36415; 71045; 80053; 82553; 83690; 83735; 83880; 84484; 85007; 85027; 85379; 85610; 86140; 93005; 96361; 96374; 99285; A9270; J2765; J7040